=== PATIENT | male | born 1970 | race Caucasian/White ===

== ENCOUNTER 2018-07-24 16:30 | Emergency (ER) | payer OTHER ==
[~2018-07-24] VITALS: Ht 170.2 cm; Wt 124.7 kg
[~2018-07-24 16:30] MED LIST: OMEPRAZOLE40 M1 PO
[2018-07-24 16:40] VITALS: BP 170/113
--- NOTE | 2018-07-24 17:09 | RADIOLOGY REPORT ---
EXAMINATION: XR TIBIA AND FIBULA, RIGHT CLINICAL INFORMATION: Fall. Anterior knee pain. Lower leg pain. COMPARISON: None TECHNIQUE: 4 views of the right leg FINDINGS: There is no fracture. No focal bone lesion or abnormal periosteal reaction. No soft tissue abnormality. There is chondrocalcinosis of the medial and lateral meniscus without bone erosion. There is a spur of the patella at the insertion of the quadriceps tendon. IMPRESSION: No acute abnormality of the right leg.
--- NOTE | 2018-07-24 18:26 | ULTRASOUND REPORT ---
EXAMINATION: US TRIPLEX LOWER EXTREMITY, RIGHT CLINICAL INFORMATION: Pain. COMPARISON: None TECHNIQUE: Color-flow triplex imaging with spectral analysis and compression Doppler were performed on the lower extremity. FINDINGS: Respiratory variation, normal compression and augmented flow are noted throughout the lower extremity. The visualized common femoral vein, superficial femoral vein, profunda femoral vein, popliteal vein and midcalf peroneal and posterior tibial venous segments show no evidence of deep venous thrombosis. There is no John's cyst. IMPRESSION: No evidence of deep venous thrombosis involving the lower extremity.
[2018-07-24] MEDS ORDERED: IBUPROFEN800 M1 PO (19:40)
--- NOTE | 2018-07-24 19:41 | ED MVC/FALL/TRAUMA COMPLAINT ---
History of Present Illness General Chief Complaint: Fall Stated Complaint: R SIDED PAIN/SWELLING S/P MECHANICAL FALL Source: patient, family Exam Limitations: no limitations Vital Signs & Intake/Output Vital Signs & Intake/Output Vital Signs Date Time Temp Pulse Resp B/P B/P Pulse O2 O2 Flow FiO2 Mean Ox Delivery Rate 07/24 1640 98.0 92 20 170/113 97 Room Air Allergies Coded Allergies: NO KNOWN ALLERGIES (05/25/11) Reconcile Medications Ibuprofen 800 MG TABLET 1 TAB PO TID PRN PAIN Omeprazole 40 MG CAPSULE. 1 CAP PO DAILY ACID REFLUX Triage Note: PT HERE FOR S/P FALL THIS AM. PT REPORTS WAS GETTING INTO TRUCK AND SLIPPED CASUING HIM TO HIT HIS RIGHT AQUINO. PT HAS LARGE HEMATOMA,REPORTS PAIN FROM BELOW RIGHT KNEE TO ANKLE. DENIES LOC OR ANY OTHER PAIN. Triage Nurses Notes Reviewed? yes Onset: Abrupt Duration: day(s): (1), constant, continues in ED Timing: single episode today Severity: moderate, severe Severity Numbers: 8 Injuries/Fall Location: lower extremity Method of Injury: direct blow, fall HPI: 48-year-old male history of chronic back pain presents for evaluation of pain in his right lower leg. Patient reports that he had tripped and hit the leg against a metal object at work. He denies any loss of consciousness or head strike. He reports pain and swelling to the right lower extremity. He is able to walk but the pain is worse with weightbearing. Denies any ankle or knee pain. The pain is mostly in his aquino. He has numbness or tingling. Past History Travel History Traveled to [place] past 21 day No Medical History Any Pertinent Medical History? see below for history Neurological: seizure EENT: allergies Cardiovascular: NONE Respiratory: NONE Gastrointestinal: GERD Hepatic: NONE Renal: KIDNEY STONES Musculoskeletal: chronic back pain, NECK PAIN Psychiatric: depression Endocrine: hyperthyroidism, hypothyroidism Blood Disorders: NONE Cancer(s): NONE BURR FILER/Reproductive: NONE Surgical History Surgical History: non-contributory Psychosocial History Who do you live with Spouse What is your primary language Portuguese Tobacco Use: Never used ETOH Use: denies use Illicit Drug Use: denies illicit drug use Family History Hx Contributory? No Review of Systems Review of Systems Constitutional: Reports: no symptoms. Eyes: Reports: no symptoms. Ears, Nose, Throat, Mouth: Reports: no symptoms. Respiratory: Reports: no symptoms. Cardiovascular: Reports: no symptoms. Gastrointestinal/Abdominal: Reports: no symptoms. Genitourinary: Reports: no symptoms. Musculoskeletal: Reports: joint pain, muscle pain, muscle stiffness. Skin: Reports: see HPI (br[place]nig). Neurological/Psychological: Reports: no symptoms. All Other Systems: Reviewed and Negative Physical Exam Physical Exam General Appearance: well developed/nourished, no apparent distress, alert, awake , obese Head: atraumatic, normal appearance Eyes: Bilateral: normal appearance, EOMI. Ears, Nose, Throat, Mouth: hearing grossly normal Neck: normal inspection, supple, full range of motion Respiratory: normal breath sounds, no respiratory distress Cardiovascular: regular rate/rhythm, normal peripheral pulses Peripheral Pulses: 2+ tibialis posterior (R), 2+ tibialis posterior (L), 2+ dorsalis pedis (R), 2+ dorsalis pedis (L) Back: normal inspection, normal range of motion Extremities: there is a 3cm diameter hematoma to the rt anterior lower leg. there is diffuse swelling to the rt lower leg. no erythema or discharge. no active bleeding. no palor, n/v supply intact. distal pulses are very palpable. full rom of the ankle and knee intact on the rt side Neurologic/Psych: no motor/sensory deficits, awake, alert, oriented x 3, normal gait, normal mood/affect Skin: intact, normal color, warm/dry Core Measures ACS in differential dx? No CVA/TIA Diagnosis No Sepsis Present: No Sepsis Focused Exam Completed? No Progress Differential Diagnosis: ext injury, contusion, dvt, fracture compartment syndomre rhabdo Plan of Care: Patient is here for evaluation of right lower leg pain after hitting his leg against a metal object. He has a hematoma to the anterior lower leg as well as diffuse swelling. Considered the possibility of compartment syndrome however x- rays are negative for fracture. He has no pallor no pain out of proportion no paresthesias. He has very good palpable distal pulses. Ultrasound negative for DVT. Suspect this is a contusion. Advised rest ice elevation compression. Tylenol Profen for pain. Patient Jose A has Percocet at home which will he will continue to use. Discussed return precautions in detail patient agrees to the plan Diagnostic Imaging: Viewed by Me: Radiology Read, Ultrasound. Discussed w/RAD: Radiology Read, Ultrasound. Radiology Impression: PATIENT: CASEY THORPE PRESENT AGE: 48 PATIENT ACCOUNT NO: [id number] : 68 LOCATION: [facility] ORDERING PHYSICIAN: Joe SCHULTZ SERVICE DATE: 07/24/18 EXAM TYPE: US - US- DUPLEX VENOUS EXTREM UNI EXAMINATION: US TRIPLEX LOWER EXTREMITY, RIGHT CLINICAL INFORMATION: Pain. COMPARISON: None TECHNIQUE: Color-flow triplex imaging with spectral analysis and compression Doppler were performed on the lower extremity. FINDINGS: Respiratory variation, normal compression and augmented flow are noted throughout the lower extremity. The visualized common femoral vein, superficial femoral vein, profunda femoral vein, popliteal vein and midcalf peroneal and posterior tibial venous segments show no evidence of deep venous thrombosis. There is no John's cyst. IMPRESSION: No evidence of deep venous thrombosis involving the lower extremity. DICTATED BY: Angelo Cooper MD DATE/TIME DICTATED: 07/24/181820 BOILER/CHILLER OPERATOR:MIGUEL DATE/TIME TRANSCRIBED:07/24/181820 CONFIDENTIAL, DO NOT COPY WITHOUT APPROPRIATE AUTHORIZATION. <Electronically signed in Other Vendor System> SIGNED BY: Angelo Cooper MD 07/24/181825, PATIENT: CASEY THORPE PRESENT AGE: 48 PATIENT ACCOUNT NO: [id number] : 68 LOCATION: [facility] ORDERING PHYSICIAN: Joe SCHULTZ SERVICE DATE: 07/24/18 EXAM TYPE: RAD - [id number], RIGHT EXAMINATION: XR TIBIA AND FIBULA, RIGHT CLINICAL INFORMATION: Fall. Anterior knee pain. Lower leg pain. COMPARISON: None TECHNIQUE: 4 views of the right leg FINDINGS: There is no fracture. No focal bone lesion or abnormal periosteal reaction. No soft tissue abnormality. There is chondrocalcinosis of the medial and lateral meniscus without bone erosion. There is a spur of the patella at the insertion of the quadriceps tendon. IMPRESSION: No acute abnormality of the right leg. DICTATED BY: Angelo Cooper MD DATE/TIME DICTATED:07/24/181703 BOILER/CHILLER OPERATOR:MIGUEL DATE/TIME TRANSCRIBED:07/24/181703 CONFIDENTIAL, DO NOT COPY WITHOUT APPROPRIATE AUTHORIZATION. <Electronically signed in Other Vendor System> SIGNED BY: Angelo Cooper MD 07/24/181708 Departure Departure Disposition: HOME OR SELF CARE Condition: Stable Clinical Impression Primary Impression: Traumatic hematoma of lower leg Qualifiers: Encounter type: initial encounter Laterality: right Qualified Code: S80.11XA - Contusion of right lower leg, initial encounter Referrals: Brandie KURTZ,Babar Araujo (PCP/Family) Additional Instructions: Keep the area clean and dry. Change dressing once daily. [place] for signs of infection like redness swelling discharge or pain. Make a follow-up with your primary care doctor for a wound check in 2 or 3 days. Return immediately with spreading redness worsening swelling worsening pain. Also look out for numbness /tingling, pale color to your skin or any other concerns. Keep the leg elevated apply ice for 15-20 minutes every few hours. Use ibuprofen 800 mg every 8 hours with food as needed for pain. Use your at home pain medicine (PERCOCET) as directed. Departure Forms: Customer Survey General Discharge Information Prescriptions: Current Visit Scripts Ibuprofen 1 TAB PO TID PRN PAIN #30 TAB
== END 2018-07-24 19:50 ==
LOC: ERH 16:30
DX: S80.11XA Contusion of right lower leg, initial encounter (principal); W22.8XXA Striking against or struck by other objects, initial encounter; Y92.89 Other specified places as the place of occurrence of the external cause; Y93.9 Activity, unspecified; K21.9 Gastro-esophageal reflux disease without esophagitis; R56.9 Unspecified convulsions; F32.9 Major depressive disorder, single episode, unspecified
CPT/HCPCS: 73590-RT; 90471; 90714